=== PATIENT | female | born 1990 | race Caucasian/White ===

== ENCOUNTER → 2023-10-20 15:15 | Outpatient (REF) | payer BC, SELFPAY ==
[2023-10-20 15:46] LABS: % Basophils 0.2 % (0-2); % Eosinophils 0.1 % (0-6); % Immature Granulocytes 0.1 % (0-0.5); % Lymphocytes 22.5 % (20.5-51.1); % Monocytes 4.7 % (1.7-9.3); % Neutrophils 72.4 % (42.2-75.2); Absolute Lymphocytes 2.1 10^3/uL (1.2-3.4); Absolute Monocytes 0.4 10^3/uL (0.1-0.6); Absolute Neutrophils 6.8 10^3/uL (1.4-6.5); Hematocrit 44.9 % (37.0-47.0); Hemoglobin 15.1 g/dL (12.0-16.0); Mean Corp Hgb Conc. 33.6 g/dL (33.0-37.0); Mean Corpuscular Hgb 29.6 pg (27.0-31.0); Mean Platelet Volume 9.4 fL (7.4-10.4); Nucleated Red Blood Cells % 0 %; Platelet Count 455 10^3/uL (130-400); Red Cell Dist. Width 12.4 % (11.5-14.5); White Blood Cell Count 9.4 10^3/uL (4.8-10.8)
[2023-10-20 16:48] LABS: ALT (SGPT) 69 U/L (0-35); AST (SGOT) 30 U/L (14-36); Albumin 4.6 g/dl (3.5-5.0); Alkaline Phosphatase 99 U/L (38-126); Blood Urea Nitrogen 4 mg/dl (7-17); Calcium 9.9 mg/dl (8.4-10.2); Carbon Dioxide 22 mmol/L (22-30); Chloride 105 mmol/L (98-107); Glucose 98 mg/dl (70-99); HDL Cholesterol 44 mg/dl; LDL Cholesterol, Calculated 168 mg/dl; Potassium 4.2 mmol/L (3.5-5.1); Sodium 138 mmol/L (135-145); Total Bilirubin 0.7 mg/dl (0.2-1.3); Total Cholesterol 239 mg/dl (50-199); Total Protein 7.5 g/dl (6.3-8.2); Triglyceride 136 mg/dl (10-149); Very Low Density Lipoprotein 27 mg/dl (0-30); eGFR > 60.00
[2023-10-20 17:06] LABS: Free T4 1.19 ng/dl (0.78-2.19); Vitamin D, 25-OH*** 33.5 ng/mL (30-80)
[2023-10-20 17:19] LABS: TSH 0.31 uIU/ml (0.47-4.68)
== END ==
LOC: REG 15:15
PROVIDERS: ATTENDING PHYSICIAN Family Medicine
DX: E78.49 Other hyperlipidemia (principal); E55.9 Vitamin D deficiency, unspecified; R63.4 Abnormal weight loss
CPT/HCPCS: 36415; 80053; 80061; 82306; 84439; 84443; 85025

== ENCOUNTER → 2023-10-28 16:37 | Outpatient (REF) | payer BC, SELFPAY ==
[2023-10-28 18:44] LABS: TSH 0.64 uIU/ml (0.47-4.68)
[2023-10-28 23:43] LABS: IgA 236 mg/dl (70-400); IgG 1315 mg/dl (700-1600); IgM 134 mg/dl (40-230)
[2023-10-30 14:01] LABS: Thyroglobulin Antibodies <0.9 IU/mL (0.0-4.0); Thyroid Peroxidase Ab (TPO) 0.4 IU/mL (0.0-9.0)
== END ==
LOC: REG 16:37
PROVIDERS: FAMILY PHYSICIAN Family Medicine
DX: E07.9 Disorder of thyroid, unspecified (principal)
CPT/HCPCS: 36415; 82784; 84443; 86376; 86800